=== PATIENT | male | born 1955 | race Caucasian/White ===

== ENCOUNTER 2019-02-18 08:53 | Outpatient (CLI) | payer MEDICARE ==
[2019-02-18] MEDS ORDERED: no medication (09:16)
[2019-02-18 10:24] LABS: BASOPHILS # (AUTO) 0.03 x10^3/uL (0-0.1); BASOPHILS % (AUTO) 1 % (0-1); EOSINOPHILS # (AUTO) 0.11 x10^3/uL (0-0.4); EOSINOPHILS % (AUTO) 2 % (1-7); LYMPHOCYTES # (AUTO) 1.58 x10^3/uL (1-3.4); LYMPHOCYTES % (AUTO) 27 % (22-44); MD NO; MEAN CORPUSCULAR HEMOGLOBIN 30.8 pg (27.5-34.5); MEAN CORPUSCULAR VOLUME 90.7 fL (81-97); MEAN PLATELET VOLUME 7.5 fL (7.4-10.4); MONOCYTES # (AUTO) 0.45 x10^3/uL (0.2-0.8); MONOCYTES % (AUTO) 8 % (2-9); NEUTROPHILS # (AUTO) 3.79 x10^3/uL (1.8-6.8); NEUTROPHILS % (AUTO) 64 % (42-75); PLATELET COUNT 235 x10^3/uL (130-400); RED BLOOD COUNT 4.84 x10^6/uL (4.38-5.82); RED CELL DISTRIBUTION WIDTH 12.2 % (9.4-14.8)
[2019-02-18 10:25] LABS: ALANINE AMINOTRANSFERASE 32 U/L (12-78); ALBUMIN 3.9 g/dL (3.4-5.0); ANION GAP 8 mmol/L (5-15); CALCIUM 8.8 mg/dL (8.5-10.1); CHLORIDE 105 mmol/L (98-107); CREATININE 0.91 mg/dL (0.7-1.3)
[2019-02-18 10:27] LABS: ALKALINE PHOSPHATASE 56 U/L (45-117); BILIRUBIN,TOTAL 0.7 mg/dL (0.2-1.0); TOTAL PROTEIN 7.2 g/dL (6.4-8.2)
== END 2019-02-18 23:59 | disposition home or self-care (01) ==
LOC: STAR 08:53
PROVIDERS: ATTEND Urology
DX: Z01.818 Encounter for other preprocedural examination (principal); K40.90 Unilateral inguinal hernia, without obstruction or gangrene, not specified as recurrent
CPT/HCPCS: 36415; 80053; 85025; 87086; 93005

== ENCOUNTER 2019-03-12 05:39 | Inpatient (IN) | payer MEDICARE ==
[~2019-03-12] VITALS: Ht 175.3 cm; Wt 69.5 kg
[~2019-03-12 05:39] MED LIST: no medication
[2019-03-12] MEDS ORDERED: LACTATED RINGERS 1,000 ML IV SCH (06:29)
[2019-03-12] MEDS ORDERED: THROMBIN 5,000 UNIT VIAL TP ONE (06:33)
[2019-03-12] MEDS ORDERED: EPINEPHRINE 1 MG/ML, 1ML ONE (06:33)
[2019-03-12] MEDS ORDERED: BUPIVACAINE/PF 0.5% ONE (06:33)
[2019-03-12] MEDS ORDERED: OPIUM/BELLADONNA SUPP.RECT 16.2-60 MG ONE ×2 (06:33→13:13)
[2019-03-12] MEDS ORDERED: BUPIVACAINE/PF-EPI 0.25% 1:200K ONE (06:33)
[2019-03-12] MEDS ORDERED: MIDAZOLAM 1 MG/ML, 2ML ONE (07:08)
[2019-03-12] MEDS ORDERED: PROPOFOL 10 MG/ML, 20ML ONE (07:09)
[2019-03-12] MEDS ORDERED: ONDANSETRON 2MG/ML, 2ML ONE (07:09)
[2019-03-12] MEDS ORDERED: DEXAMETHASONE 4 MG/ML, 1ML ONE ×2 (07:09)
[2019-03-12] MEDS ORDERED: ROCURONIUM 10MG/ML,5ML ONE ×2 (07:09)
[2019-03-12] MEDS ORDERED: FENTANYL PF 250 MCG/5ML ONE (07:09)
[2019-03-12] MEDS ORDERED: LIDOCAINE-MPF 2% ,5ML ONE (07:09)
[2019-03-12] MEDS ORDERED: CEFAZOLIN 1,000 MG ONE ×2 (07:09)
[2019-03-12] MEDS ORDERED: FENTANYL PF 100 MCG/2ML IV PRN (07:30)
[2019-03-12] MEDS ORDERED: ACETAMINOPHEN 500 MG TABLET PO ONE (07:30)
[2019-03-12] MEDS ORDERED: GABAPENTIN 300 MG CAPSULE PO ONE (07:30)
[2019-03-12] MEDS ORDERED: MEPERIDINE/PF 25MG/ML,1ML IVPush PRN (07:30)
[2019-03-12] MEDS ORDERED: SUGAMMADEX 200 MG/2 ML IVPush ONE (07:30)
[2019-03-12] MEDS ORDERED: HYDROmorphone 2 MG/ML, 1ML IVPush PRN (07:30)
[2019-03-12] MEDS ORDERED: ONDANSETRON 2MG/ML, 2ML IV PRN ×2 (07:30→15:30)
[2019-03-12] MEDS ORDERED: OXYcodone 5 MG/5 ML ORAL.SOL UDC PO PRN (07:30)
[2019-03-12] MEDS ORDERED: LORazepam 2 MG/ML, 1ML IVPush PRN (07:30)
[2019-03-12] MEDS ORDERED: OXYcodone 5 MG/5 ML ORAL.SOL UDC ONE (12:46)
[2019-03-12] MEDS ORDERED: FENTANYL PF 100 MCG/2ML ONE (12:46)
[2019-03-12] MEDS ORDERED: OPIUM/BELLADONNA SUPP.RECT 16.2-60 MG PR PRN (13:20)
[2019-03-12 14:00] VITALS: BP 128/67
[2019-03-12] MEDS ORDERED: MORPHINE SULFATE 4 MG/ML, 1ML IV PRN (15:24)
[2019-03-12] MEDS: D5%-0.45NACL+KCL 20MEQ 1,000 ML IV SCH (16:20)
[2019-03-12] MEDS: ACETAMINOPHEN 500 MG TABLET PO SCH ×2 (16:20→21:33)
[2019-03-12] MEDS ORDERED: OXYcodone IR 5MG TABLET PO PRN (18:45)
[2019-03-12 19:22] VITALS: BP 121/76
[2019-03-12 23:37] VITALS: BP 96/50
[2019-03-13] MEDS: D5%-0.45NACL+KCL 20MEQ 1,000 ML IV SCH ×2 (00:08→08:34)
[2019-03-13] MEDS ORDERED: OPIUM/BELLADONNA SUPP.RECT 16.2-60 MG PR PRN (01:30)
[2019-03-13 04:33] VITALS: BP 104/57
[2019-03-13] MEDS: ACETAMINOPHEN 500 MG TABLET PO SCH ×2 (04:41→09:46)
[2019-03-13 05:29] LABS: ANION GAP 2 mmol/L (5-15); CALCIUM 8.3 mg/dL (8.5-10.1); CHLORIDE 110 mmol/L (98-107)
[2019-03-13 07:24] VITALS: BP 120/75
[2019-03-13] MEDS ORDERED: ENOXAPARIN 40 MG/0.4 ML SQ SCH (08:00)
[2019-03-13] MEDS ORDERED: DOCU-131 PO (13:32)
[2019-03-13] MEDS ORDERED: HYDR-3240 PO (13:34)
[2019-03-13 14:03] VITALS: BP 114/70
== END 2019-03-13 16:00 | disposition home or self-care (01) | DRG 707 ==
LOC: OUT 05:39 → 4NE 13:45 → OUT 23:13 → DCLOUNGE 03-13 15:30
PROVIDERS: ADMIT Urology; ATTEND Urology
PROC: 0YU64JZ Supplement Left Inguinal Region with Synthetic Substitute, Percutaneous Endoscopic Approach (ICD-10-PCS; 2019-03-12)
PROC: 8E0W4CZ Robotic Assisted Procedure of Trunk Region, Percutaneous Endoscopic Approach (ICD-10-PCS; 2019-03-12)
PROC: 0VTQ4ZZ Resection of Bilateral Vas Deferens, Percutaneous Endoscopic Approach (ICD-10-PCS; 2019-03-12)
PROC: 0TSC4ZZ Reposition Bladder Neck, Percutaneous Endoscopic Approach (ICD-10-PCS; 2019-03-12)
PROC: 0VT04ZZ Resection of Prostate, Percutaneous Endoscopic Approach (ICD-10-PCS; principal; 2019-03-12 07:30)
PROC: 0VT34ZZ Resection of Bilateral Seminal Vesicles, Percutaneous Endoscopic Approach (ICD-10-PCS; 2019-03-12 07:30)
DX: C61 Malignant neoplasm of prostate (principal); R71.0 Precipitous drop in hematocrit; K40.90 Unilateral inguinal hernia, without obstruction or gangrene, not specified as recurrent
CPT/HCPCS: 36415; 80048; 85014; 85018; 86850; 86900; 88305; 88309; 88331; C1729; G0378; J0171; J0690; J1100; J1650; J2250; J2405; J2704; J3010; C1760; C1781; J3480; J7120

== ENCOUNTER → 2019-03-19 | Outpatient (CLI) | payer MEDICARE ==
[~2019-03-19] MED LIST changes: +DOCU-131 PO; +HYDR-3240 PO
== END | disposition home or self-care (01) ==
LOC: RAD 08:07
PROVIDERS: ATTEND Urology
DX: C61 Malignant neoplasm of prostate (principal)
CPT/HCPCS: 74430